=== PATIENT | male | born 1940 | race Caucasian/White ===

== ENCOUNTER → 2019-12-08 | Emergency (ER) | payer MEDICARE, OTHER ==
[~2019-12-08] VITALS: Ht 177.8 cm; Wt 79.0 kg
[~2019-12-08] MED LIST: BISA-155 PO; CARV6.252 PO; CLOP75TA15 PO; DOCU100C40 PO; FENO145T26 PO; LOPE-144 PO; LOSA25TA41 PO; LOVA40TA2 PO; MAGN400O6 PO; MULT-620 PO; OMEP20CA15 PO; ONDA4TAB12 PO; ONDA4TAB9 PO; PROC-8 PO; TERA2CAP4 PO; normal saline 1000ML IV soln IVB ONE; ondansetron/PF 4mg/2ml inj IV ONE
--- NOTE | 2019-12-08 09:16 | NUR ---
spouse at bedside.Call light within reach.
[2019-12-08 09:20] LABS: BASOPHILS # (AUTO) 0.1 X10'3 (0-0.2); BASOPHILS % (AUTO) 0.9 % (0-1); EOSINOPHILS % (AUTO) 0.1 % (0-6); HEMATOCRIT 38.3 % (42.0-52.0); HEMOGLOBIN 12.9 g/dl (14.0-17.9); LYMPHOCYTES # (AUTO) 0.3 X10'3 (1.1-4.8); LYMPHOCYTES % (AUTO) 3.8 % (21-51); MEAN CORPUSCULAR HEMOGLOBIN 31.1 PG (27.0-31.0); MEAN CORPUSCULAR HGB CONC 33.6 g/dL (33.0-36.5); MEAN CORPUSCULAR VOLUME 92.6 FL (78-98); MEAN PLATELET VOLUME 8.3 FL (7.4-10.4); MONOCYTES # (AUTO) 0.6 X10'3 (0-0.9); MONOCYTES % (AUTO) 6.7 % (2-12); NEUTROPHILS # (AUTO) 7.9 X10'3 (1.8-7.7); NEUTROPHILS % (AUTO) 88.5 % (42-75); PLATELET COUNT 189 X10'3 (140-440); RED BLOOD COUNT 4.13 X10'6 (4.70-6.10); RED CELL DISTRIBUTION WIDTH 14.5 % (11.5-14.5); WHITE BLOOD COUNT 8.9 X10'3 (4.5-11.0)
[2019-12-08 09:43] LABS: ALANINE AMINOTRANSFERASE 19 U/L (12-78); ALBUMIN 3.8 G/DL (3.4-5.0); ALBUMIN/GLOBULIN RATIO 1.3 (1.1-1.5); ALKALINE PHOSPHATASE 29 IU/L (46-116); ANION GAP 15 (8-16); ASPARTATE AMINO TRANSFERASE 25 U/L (10-37); BILIRUBIN,TOTAL 0.6 MG/DL (0.1-1.0); BLOOD UREA NITROGEN 22 MG/DL (7-18); BUN/CREATININE RATIO 12.4 (5.4-32.0); CALCIUM 8.9 MG/DL (8.5-10.1); CHLORIDE 106 MMOL/L (99-107); CREATININE 1.78 MG/DL (0.60-1.10); GLUCOSE 135 MG/DL (70-104); LIPASE 103 U/L (73-393); POTASSIUM 3.6 MMOL/L (3.5-5.1); SODIUM 143 MMOL/L (135-145); TOTAL CARBON DIOXIDE 22.3 MMOL/L (24-32); TOTAL PROTEIN 6.8 G/DL (6.4-8.2); eGFR 37 ML/MIN
[2019-12-08 10:21] LABS: CLARITY,URINE CLEAR (Clear); COLOR,URINE YELLOW (Yellow); GLUCOSE, URINE NEGATIVE (Neg); KETONES,URINE TRACE mg/dl (Neg); LEUKOCYTE ESTERASE ,URINE NEGATIVE (Neg); NITRITES, URINE NEGATIVE (Neg); OCCULT BLOOD,URINE NEGATIVE (Neg); PROTEIN,URINE NEGATIVE (Neg); UROBILINOGEN,URINE 0.2 E.U/dL (0.2-1.0)
[2019-12-08 10:33] LABS: UA COLLECTION TYPE STRAIGHT CATH
[2019-12-08 10:41] VITALS: BP 119/57
== END | disposition home or self-care (01) ==
LOC: ER 08:25
DX: R11.2 Nausea with vomiting, unspecified (principal); R19.7 Diarrhea, unspecified; I25.10 Atherosclerotic heart disease of native coronary artery without angina pectoris; E78.00 Pure hypercholesterolemia, unspecified; I25.2 Old myocardial infarction; Z11.59 Encounter for screening for other viral diseases; Z85.9 Personal history of malignant neoplasm, unspecified; Z90.89 Acquired absence of other organs; Z98.890 Other specified postprocedural states; Z79.899 Other long term (current) drug therapy
CPT/HCPCS: 36415; 71045; 80053; 81003; 83690; 84145; 85025; 93005; 96361; 96374; 99285; J2405; J7030; U0003